=== PATIENT | male | born 1980 | race African-American/Black ===

== ENCOUNTER 2017-05-01 14:35 | Emergency (ER) | payer MEDICAID, OTHER ==
[~2017-05-01] VITALS: Ht 167.6 cm; Wt 86.0 kg
[~2017-05-01 14:35] MED LIST: ACET500C5 PO; CEPH-443 PO; HYDR-762 PO
[2017-05-01 14:52] VITALS: Ht 167.6 cm; Wt 86.0 kg
--- NOTE | 2017-05-01 15:24 | ERD ---
ER Documentation Chief Complaint Date/Time DATE: 05/01/17 TIME: 15:23 Chief Complaint right leg pain from a fall; swelling; sent by pmd for us HPI 36-year-old male with history of hypertension, referred to the ED by his primary care physician for evaluation of right leg swelling and venous Dopplers rule out a DVT. Patient fell approximately 4 feet off the back of a truck on . X-rays of the time were negative for fracture. He was seen today for follow-up and although swelling has decreased with elevation and nonsteroidal anti-inflammatories area is still swollen and tender. There was no head injury or loss of consciousness. He denies chest pain, palpitations or shortness of breath. Denies any foot pain or numbness. No hip, knee or ankle pain. No fevers or chills. ROS All systems reviewed and are negative except as per history of present illness. Medications Home Meds Discontinued Scripts Cephalexin* (Keflex*) 500 Mg Capsule, 500 MG PO QID for 7 Days, CAP Prov:ARTHUR HERNANDEZ-C 06/13/16 Acetaminophen* (Tylophen*) 500 Mg Capsule, 1 CAP PO Q6H Y for PAIN AND OR ELEVATED TEMP, #20 CAP Prov:ARTHUR HERNANDEZ-C 06/13/16 Hydrocodone Bit-Acetaminophen* ([place]*) 10-325 Mg Tablet, 1 TAB PO Q6 Y for PAIN , #12 TAB Prov:ARTHUR HERNANDEZ-C 06/13/16 Allergies Allergies: Coded Allergies: No Known Allergy (Unverified , 05/01/17) PMhx/Soc Reviewed in chart. As per HPI History of Surgery: No Anesthesia Reaction: No Hx Neurological Disorder: No Hx Respiratory Disorders: No Hx Cardiac Disorders: No Hx Psychiatric Problems: No Hx Miscellaneous Medical Probl: No Hx Alcohol Use: Yes (Approximately 2 beers per day) Hx Substance Use: Yes (marijuana) Hx Tobacco Use: Yes FmHx No hypercoagulability or bleeding disorders. No stroke or cancer Physical Exam Vitals Vital Signs Date Time Temp Pulse Resp B/P Pulse Ox O2 Delivery O2 Flow Rate FiO2 05/01/17 14:52 99.1 83 18 207/121 99 Physical Exam Const: Alert. Mild distress due to pain Head: Atraumatic Eyes: Normal Conjunctiva ENT: Normal External Ears, Nose and Mouth. Neck: Full range of motion. Nontender.. Resp: Breath sounds are equal and clear to auscultation bilaterally Cardio: Regular rate and rhythm, no murmurs Abd: Soft, non tender, non distended. Normal bowel sounds Skin: No petechiae or rashes Back: No midline or flank tenderness Ext: Right lower extremity: Lateral aspect below the knee is swollen and tender. With a superficial abrasion. No fluctuance. Distal neurovascular intact. Neur: Awake and alert. No focal deficit observed. Psych: Normal Mood and Affect Results 24 hrs PROCEDURE: US Lower extremity Venous. CLINICAL INDICATION: Right leg edema , pain, trauma TECHNIQUE: Multiple sonographic images of the right lower extremity deep venous system was obtained utilizing grayscale, color-flow, compressive sonography and doppler imaging with augmentation. The images were reviewed on a PACS workstation. COMPARISON: None. FINDINGS: There is normal compressibility and flow within the right common femoral, femoral, posterior tibial, peroneal and popliteal veins. There is a heterogeneous mixed isoechoic and hypoechoic structure in the medial aspect of the right knee measuring 6.8 x 2.5 x 5.6 cm, suspicious for a hematoma. RPTAT: AA IMPRESSION: No sonographic evidence for deep venous thrombosis. Probable hematoma in the soft tissues of the medial right knee. .Dante Carmichael MD, MD Date Time Electronically viewed and signed by .Dante Carmichael MD, on 05/01/2017 16: 04 .S/ Procedures/MDM DOCUMENTS REVIEWED: ED nurse, prior ED MEDICAL DECISION MAKIN-year-old male with history of hypertension, referred to the ED by his primary care physician for evaluation of right leg swelling. Venous Dopplers are negative for DVT and confirm presence of hematoma. Clinically the hematoma is markedly decreased in size. There is no signs of secondary infection including cellulitis, ascending lymphangitis or necrotizing fasciitis. Previous radiographs are reported as negative and not repeated today. No signs of arterial insufficiency. Patient refused analgesics. Asymptomatic, uncontrolled severe hypertension. Patient states his blood pressures been like this for years and refused any further evaluation or treatment. He understands the risks and will sign out AGAINST MEDICAL ADVICE. He is counseled extensively regarding the risks of high blood pressure in the long-term morbidity including renal failure, stroke and VT and is strongly encouraged to seek urgent outpatient follow-up. Counseled patient regarding diagnostic workup, diagnosis and need for followup. Understands to return to ED if symptoms recur, worsen or any other concerns. Departure Diagnosis: Primary Impression: Injury of right leg Encounter type: subsequent encounter Qualified Code: S89.91XD - Injury of right leg, subsequent encounter Additional Impressions: Hematoma of right lower extremity Encounter type: subsequent encounter Qualified Code: S80.11XD - Hematoma of right lower extremity, subsequent encounter Abrasion of right lower extremity Encounter type: subsequent encounter Qualified Code: S80.811D - Abrasion of right lower extremity, subsequent encounter Uncontrolled hypertension Left against medical advice Condition: BALTAZAR Castillo MD May 01, 2017 15:24
--- NOTE | 2017-05-01 16:04 | RADRPT ---
PROCEDURE: US Lower extremity Venous. CLINICAL INDICATION: Right leg edema , pain, trauma TECHNIQUE: Multiple sonographic images of the right lower extremity deep venous system was obtaine d utilizing grayscale, color-flow, compressive sonography and doppler imaging with augmentation. Th e images were reviewed on a PACS workstation. COMPARISON: None. FINDINGS: There is normal compressibility and flow within the right common femoral, femoral, posterior tibial, peroneal and popliteal veins. There is a heterogeneous mixed isoechoic and hypoechoic structure in the medial aspect of the right knee measuring 6.8 x 2.5 x 5.6 cm, suspicious for a hematoma. RPTAT: AA IMPRESSION: No sonographic evidence for deep venous thrombosis. Probable hematoma in the soft tissues of the medial right knee. .Dante Carmichael MD, MD Date Time Electronically viewed and signed by .Dante Carmichael MD, MD on 05/01/2017 16:04 .S/
[2017-05-01 17:03] VITALS: BP 202/136; PULSE 68
== END 2017-05-01 17:06 | disposition left against medical advice (07) ==
LOC: E/R 14:35
DX: S80.11XD Contusion of right lower leg, subsequent encounter (principal); S80.811D Abrasion, right lower leg, subsequent encounter; I10 Essential (primary) hypertension; W17.89XD Other fall from one level to another, subsequent encounter; Z87.891 Personal history of nicotine dependence
CPT/HCPCS: 93971